=== PATIENT | female | born 1980 | race Caucasian/White ===

== ENCOUNTER 2024-02-06 00:24 | Emergency (ER) | payer OTHER ==
[~2024-02-06] VITALS: Ht 162.6 cm; Wt 68.0 kg
[2024-02-06 00:28] VITALS: O2SAT 100
[2024-02-06 00:55] VITALS: TEMP 98.3
[2024-02-06 03:09] LABS: ALANINE AMINOTRANSFERASE 11 IU/L (10-49); ALBUMIN 4.4 g/dL (3.2-4.8); ASPARTATE AMINOTRANSFERASE 16 IU/L (<34); BILIRUBIN TOTAL 0.4 mg/dL (0.1-1.0); CALCIUM 8.9 mg/dL (8.7-10.4); CARBON DIOXIDE 28 mEq/L (21-32); CHLORIDE 102 mEq/L (98-107); CREATININE 0.7 mg/dL (0.6-1.0); GLUCOSE 106 mg/dL (70-105); POTASSIUM 3.7 mEq/L (3.5-5.1); PROTEIN TOTAL 7.1 g/dL (6.0-8.3); SODIUM 135 mEq/L (136-145); UREA NITROGEN BLOOD 14 mg/dL (9-23)
[2024-02-06 03:26] VITALS: BP 153/80; PULSE 70; RESP 12
[2024-02-06] MEDS: KETOROLAC 30MG/ML VIAL IV ONE (03:26)
[2024-02-06 03:41] LABS: HCG SCREEN NEGATIVE
[2024-02-06] MEDS ORDERED: IOHEXOL-300 100 ML BOTTLE ONE (04:45)
[2024-02-06] MEDS ORDERED: IBUP-2028 MT (05:21)
== END 2024-02-06 05:40 | disposition home or self-care (01) ==
LOC: ER 00:48
DX: R10.9 Unspecified abdominal pain (principal); V49.9XXA Car occupant (driver) (passenger) injured in unspecified traffic accident, initial encounter; Y93.89 Activity, other specified; Y92.89 Other specified places as the place of occurrence of the external cause; Y99.8 Other external cause status
CPT/HCPCS: 80053; 81025; 84703; 36415; 71045; 73610; 73630; 74177; 96374; 99285; Q9967; J1885; Z7610